=== PATIENT | male | born 1970 | race Caucasian/White ===

== ENCOUNTER 2020-06-05 20:04 | Inpatient (IN) ==
--- NOTE | 2020-06-05 20:26 | Emergency Department Note ---
Impression & Plan Precordial chest pain, Drug abuse, Hearing voices, Suicidal thoughts ED Provider Note NAME: MIKA LAM AGE: 50 SEX: M : 1970 ARRIVES VIA: Ambulance INFORMANT: [Patient][ens] ED PROVIDER(S): [John Hammer MD] CHIEF COMPLAINT: Chest pain, hearing voices HISTORY OF PRESENT ILLNESS: The patient is a 50-year-old male who [facility] He was [facility] for [facility]. The patient was walking from the facility and was picked up by the ambulance for chest pain. The patient apparently has been having chest pain on and off for weeks if not months. The chest pain is moderate in severity. The pain comes and goes and at times, he feels short of breath with it. He has no known diagnosis of coronary disease. He was given 4 baby aspirin prior to arrival by the EMS crew. No nitroglycerin administered. Patient has not had cough or congestion. He has had no fever or chills. He has not had vomiting or diarrhea. He admits to drinking some alcohol today after being discharged from [facility]. Patient has a mental health history. He states that he has felt depressed lately and he is hearing voices. He states that he has had some suicidal thoughts but has no definite plan. He has been hospitalized in the past on a psychiatric floor. He does want to be admitted voluntarily to a psychiatric facility as he is not functioning well enough as an outpatient. REVIEW OF SYSTEMS: See HPI for pertinent positives and negatives. A total of ten systems were reviewed and were otherwise negative. PMHx/PSHx: See Below SOCIAL HISTORY: See Below. PHYSICAL EXAM: GENERAL: Patient is in no acute distress. HEENT: No acute trauma, normocephalic atraumatic, mucous membranes moist, no nasal congestion, no scleral icterus. NECK: No stridor, no adenopathy, no meningismus, trachea is midline. LUNGS: Clear to auscultation bilaterally, no wheeze, no rhonchi, breath sounds equal. HEART: Without murmurs gallops or rubs, regular rate and rhythm. ABDOMEN: Soft, nontender, bowel sounds positive, no hernias, no peritonitis. EXTREMITIES: No cyanosis or edema, full range of motion of all the joints w ithout pain or difficulty, no signs for acute trauma. NEUROLOGIC: Oriented x 3, no acute motor or sensory deficits, no focal weakness. SKIN: No rash, no jaundice, no diaphoresis. Psychiatric: Cooperative, voluntary, admits to hearing voices, admits to suicidal thoughts without a definite plan. DIFFERENTIAL DIAGNOSIS: Cardiac ischemia, aortic dissection, pulmonary embolism, pneumothorax, pneumonia, pericarditis, myocarditis, esophageal rupture, GERD, cholecystitis, pancreatitis, musculoskeletal, psychosis, depression, suicidal ideation, drug and alcohol abuse, as well as other pathologies. EMERGENCY DEPARTMENT COURSE/PROCEDURES: ECG: Indication was chest pain. The ECG shows a normal sinus rhythm with a rate of 93. There is no ST elevation, no PVCs. There is some artifact present. The QTc is 425. Continuous Cardiac Monitoring: An order was placed for continuous cardiac monitoring. The monitor shows a rate of 97 with normal sinus rhythm. MEDICAL DECISION MAKING: There is no leukocytosis or concerning anemia. There is a normal platelet count. No coagulopathy. Potassium slightly low at 3.1. No kidney failure. There were some elevations to the AST and ALT--the patient states he has been told this before. The bilirubin and alk phos were normal. Lipase was normal. The patient appeared to be in a euthyroid state. ECG showed a sinus rhythm, no acute ischemia. Cardiac enzyme testing x1 is not consistent with acute cardiac injury. Chest film did not show mediastinal widening, pneumonia or pneumothorax. Urine tox was negative. Alcohol, Tylenol and aspirin levels were undetectable. Urinalysis did not show evidence for infection. The patient was given oral potassium for the slightly low potassium value. He was given a 500 cc saline bolus. Patient has been cooperative. I do believe he is medically clear for a psychiatric evaluation. His chest pain is very likely musculoskeletal and/or related to his anxiety. The patient was reassured by his work-up. Patient is going to be evaluated by our psychiatry case management team. At this point, his disposition is pending. Patient's case was signed out to Dr. Camacho at the change of shift. Past Med/Surg History Medical History Depression Drug abuse Social History Smoking Status: Current every day smoker Preferred Language: Albanian Feels Safe at Home: Yes Allergies Allergies Allergy/AdvReac Type Severity Reaction Status Date / Time nitroglycerin Allergy Unknown Verified 06/05/20 20:32 Home Meds Home Medications Medication Instructions Recorded Confirmed acetaminophen [Tylenol Extra 1,000 mg PO Q6H PRN 06/05/20 06/05/20 Strength] hydroxyzine pamoate [Vistaril] 0 mg PO BID PRN 06/05/20 06/05/20 Results & Data (ED) Vital Signs Vital Signs - 24 hr 06/05/20 20:12 06/05/20 20:24 06/05/20 21:16 Temperature 36.8 C Temperature Source Oral Pulse Rate 97 H Pulse Rate [Right] 81 Pulse Rhythm Regular Pulse Rhythm [Right] Regular Pulse Strength Normal Pulse Strength [Right] Normal Respiratory Rate 17 16 Respiratory Effort / Characteristics Non-Labored Spontaneous Non-Labored Spontaneous Respiratory Depth Normal Normal Respiratory Pattern Regular Blood Pressure 94/66 L Blood Pressure [Right Arm] 94/66 L Blood Pressure Mean 75 Blood Pressure Mean [Right Arm] 75 Blood Pressure Position Sitting Blood Pressure Position [Right Arm] Lying Pulse Oximetry 97 99 98 Oxygen Delivery Method Room Air Room Air Room Air Sepsis Recent Fever Within 48 Hours No Sepsis New/Unexplained Change in Mental Status No Sepsis Action Taken by Nursing No Action Required Home Medications Current Medication List: was personally reviewed by me Laboratory Data Attestation: I reviewed the patient's lab results. Result diagrams: 06/05/20 20:10 06/05/20 20:10 Lab Results 06/05/20 06/05/20 06/05/20 Range/Units 20:10 20:10 20:10 WBC 8.11 (4.8-10.8) K/uL RBC 4.55 L (4.7-6.1) M/uL Hgb 13.4 L (14.0-18.0) g/dL Hct 38.8 L (42-52) % MCV 85.3 (80-100) fL MCH 29.5 (25-34) pg MCHC 34.5 (32-36) g/dL RDW Std Deviation 42.7 (36.4-46.3) fL RDW Coeff of Johnnie 13.7 (11.5-14.5) % Plt Count 272 (130-400) K/uL MPV 10.3 (7.4-10.4) fL Immature Gran % (Auto) 0.1 % Neut % (Auto) 64.6 % Lymph % (Auto) 27.1 % [place] % (Auto) 6.4 % Eos % (Auto) 1.4 % Baso % (Auto) 0.4 % Neut # (Auto) 5.24 (1.4-6.5) K/uL Lymph # (Auto) 2.20 (1.2-3.4) K/uL [place] # (Auto) 0.52 (0.11-0.59) K/uL Eos # (Auto) 0.11 (0-0.5) K/uL Baso # (Auto) 0.03 (0-0.2) K/uL Immature Gran # (Auto) 0.01 (0.00-0.02) K/uL PT 11.1 (9.0-12.0) Seconds INR 1.1 (0.9-1.1) APTT 29.5 (21.0-31.0) Seconds PTT Ratio 1.1 Sodium 139 (136-145) mmol/L Potassium 3.1 L (3.5-5.1) mmol/L Chloride 104 (98-107) mmol/L Carbon Dioxide 25 (21-32) mmol/L Anion Gap 10.0 (3-11) BUN 6 L (7-18) mg/dl Creatinine 0.97 (0.6-1.4) mg/dl Est Cr Clr Drug Dosing 96.2 ml/min Est GFR ( Amer) 106.6 Est GFR (Non-Af Amer) 91.9 BUN/Creatinine Ratio 5.7 L (10-20) Glucose 126 H (70-99) mg/dl Calcium 8.4 L (8.5-10.1) mg/dl Total Bilirubin 0.4 (0.2-1) mg/dl AST 164 H (15-37) U/L ALT 368 H (12-78) U/L Alkaline Phosphatase 59 (45-117) U/L Troponin I < 0.015 (0-0.045) ng/ml Total Protein 6.9 (6.4-8.2) gm/dl Albumin 3.3 L (3.4-5.0) gm/dl Globulin 3.6 (2.5-4.0) gm/dl Albumin/Globulin Ratio 0.9 (0.9-2) Lipase 179 (73-393) U/L TSH 1.260 (0.300-4.500) uIu/ml Urine Color Urine Appearance (Clear) Urine pH (4.5-7.5) Ur Specific [place] (1.000-1.030) Urine Protein (Negative) Urine Glucose (UA) (Negative) Urine Ketones (Negative) Urine Blood (Negative) Urine Nitrite (Negative) Urine Bilirubin (Negative) Urine Urobilinogen (Negative) Ur Leukocyte Esterase (Negative) Salicylates (2.8-20) mg/dl Urine Opiates Screen (Neg) Ur Methadone, Qual (Neg) Acetaminophen (10-30) ug/ml Urine Barbiturates (Neg) Ur Phencyclidine (PCP) (Neg) U Amphetamin/Meth Scrn (Neg) MDMA (Ecstasy) Screen (Neg) U Benzodiazepines Scrn (Neg) Ur Cocaine Metabolite (Neg) U Marijuana (THC) Screen (Neg) Ethyl Alcohol mg/dL (0-3) mg/dl 06/05/20 06/05/20 06/05/20 Range/Units 20:10 20:10 20:10 WBC (4.8-10.8) K/uL RBC (4.7-6.1) M/uL Hgb (14.0-18.0) g/dL Hct (42-52) % MCV (80-100) fL MCH (25-34) pg MCHC (32-36) g/dL RDW Std Deviation (36.4-46.3) fL RDW Coeff of Johnnie (11.5-14.5) % Plt Count (130-400) K/uL MPV (7.4-10.4) fL Immature Gran % (Auto) % Neut % (Auto) % Lymph % (Auto) % [place] % (Auto) % Eos % (Auto) % Baso % (Auto) % Neut # (Auto) (1.4-6.5) K/uL Lymph # (Auto) (1.2-3.4) K/uL [place] # (Auto) (0.11-0.59) K/uL Eos # (Auto) (0-0.5) K/uL Baso # (Auto) (0-0.2) K/uL Immature Gran # (Auto) (0.00-0.02) K/uL PT (9.0-12.0) Seconds INR (0.9-1.1) APTT (21.0-31.0) Seconds PTT Ratio Sodium (136-145) mmol/L Potassium (3.5-5.1) mmol/L Chloride (98-107) mmol/L Carbon Dioxide (21-32) mmol/L Anion Gap (3-11) BUN (7-18) mg/dl Creatinine (0.6-1.4) mg/dl Est Cr Clr Drug Dosing ml/min Est GFR ( Amer) Est GFR (Non-Af Amer) BUN/Creatinine Ratio (10-20) Glucose (70-99) mg/dl Calcium (8.5-10.1) mg/dl Total Bilirubin (0.2-1) mg/dl AST (15-37) U/L ALT (12-78) U/L Alkaline Phosphatase (45-117) U/L Troponin I (0-0.045) ng/ml Total Protein (6.4-8.2) gm/dl Albumin (3.4-5.0) gm/dl Globulin (2.5-4.0) gm/dl Albumin/Globulin Ratio (0.9-2) Lipase (73-393) U/L TSH (0.300-4.500) uIu/ml Urine Color Yellow Urine Appearance Clear (Clear) Urine pH 6.5 (4.5-7.5) Ur Specific [place] 1.009 (1.000-1.030) Urine Protein Negative (Negative) Urine Glucose (UA) Negative (Negative) Urine Ketones Negative (Negative) Urine Blood Negative (Negative) Urine Nitrite Negative (Negative) Urine Bilirubin Negative (Negative) Urine Urobilinogen Negative (Negative) Ur Leukocyte Esterase Negative (Negative) Salicylates 2.1 L (2.8-20) mg/dl Urine Opiates Screen Neg (Neg) Ur Methadone, Qual Neg (Neg) Acetaminophen < 2 L (10-30) ug/ml Urine Barbiturates Neg (Neg) Ur Phencyclidine (PCP) Neg (Neg) U Amphetamin/Meth Scrn Neg (Neg) MDMA (Ecstasy) Screen Neg (Neg) U Benzodiazepines Scrn Neg (Neg) Ur Cocaine Metabolite Neg (Neg) U Marijuana (THC) Screen Neg (Neg) Ethyl Alcohol mg/dL (0-3) mg/dl 06/05/20 Range/Units 20:51 WBC (4.8-10.8) K/uL RBC (4.7-6.1) M/uL Hgb (14.0-18.0) g/dL Hct (42-52) % MCV (80-100) fL MCH (25-34) pg MCHC (32-36) g/dL RDW Std Deviation (36.4-46.3) fL RDW Coeff of Johnnie (11.5-14.5) % Plt Count (130-400) K/uL MPV (7.4-10.4) fL Immature Gran % (Auto) % Neut % (Auto) % Lymph % (Auto) % [place] % (Auto) % Eos % (Auto) % Baso % (Auto) % Neut # (Auto) (1.4-6.5) K/uL Lymph # (Auto) (1.2-3.4) K/uL [place] # (Auto) (0.11-0.59) K/uL Eos # (Auto) (0-0.5) K/uL Baso # (Auto) (0-0.2) K/uL Immature Gran # (Auto) (0.00-0.02) K/uL PT (9.0-12.0) Seconds INR (0.9-1.1) APTT (21.0-31.0) Seconds PTT Ratio Sodium (136-145) mmol/L Potassium (3.5-5.1) mmol/L Chloride (98-107) mmol/L Carbon Dioxide (21-32) mmol/L Anion Gap (3-11) BUN (7-18) mg/dl Creatinine (0.6-1.4) mg/dl Est Cr Clr Drug Dosing ml/min Est GFR ( Amer) Est GFR (Non-Af Amer) BUN/Creatinine Ratio (10-20) Glucose (70-99) mg/dl Calcium (8.5-10.1) mg/dl Total Bilirubin (0.2-1) mg/dl AST (15-37) U/L ALT (12-78) U/L Alkaline Phosphatase (45-117) U/L Troponin I (0-0.045) ng/ml Total Protein (6.4-8.2) gm/dl Albumin (3.4-5.0) gm/dl Globulin (2.5-4.0) gm/dl Albumin/Globulin Ratio (0.9-2) Lipase (73-393) U/L TSH (0.300-4.500) uIu/ml Urine Color Urine Appearance (Clear) Urine pH (4.5-7.5) Ur Specific [place] (1.000-1.030) Urine Protein (Negative) Urine Glucose (UA) (Negative) Urine Ketones (Negative) Urine Blood (Negative) Urine Nitrite (Negative) Urine Bilirubin (Negative) Urine Urobilinogen (Negative) Ur Leukocyte Esterase (Negative) Salicylates (2.8-20) mg/dl Urine Opiates Screen (Neg) Ur Methadone, Qual (Neg) Acetaminophen (10-30) ug/ml Urine Barbiturates (Neg) Ur Phencyclidine (PCP) (Neg) U Amphetamin/Meth Scrn (Neg) MDMA (Ecstasy) Screen (Neg) U Benzodiazepines Scrn (Neg) Ur Cocaine Metabolite (Neg) U Marijuana (THC) Screen (Neg) Ethyl Alcohol mg/dL < 3.0 (0-3) mg/dl Administered Medications Discontinued Medications Sodium Chloride (Nss) 500 mls @ 999 mls/hr IV .Q31M ADAM Stop: 06/05/20 21:00 Last Infusion: 06/05/20 21:08 Dose: 0 mls/hr Documented by: [id number] Admin: 06/05/20 20:25 Dose: 999 mls/hr Documented by: [id number] Potassium Chloride (Potassium Chloride Crtab 20 Meq Tabcr) 40 meq PO NOW STA Stop: 06/05/20 20:56 Last Admin: 06/05/20 21:38 Dose: 40 meq Documented by: [id number] Imaging Data Attestation: I personally reviewed and interpreted this imaging study as follows: My Impression: Chest x-ray: There was no mediastinal widening, pneumonia or pneumothorax. The lungs appeared clear. Discharge Plan Visit Data Chief Complaint: Chest Pain Stated Complaint: CHEST PAIN ED Provider: John Hammer Discharge Problem: Precordial chest pain, Drug abuse, Hearing voices, Suicidal thoughts Patient Disposition: Still a Patient Condition: Good Forms Stand Alone Forms: My [facility] Prescriptions Prescriptions: No Action acetaminophen [Tylenol Extra Strength] 500 mg Tablet 1,000 mg PO Q6H PRN (Reason: Pain) RF: 0 hydroxyzine pamoate [Vistaril] 25 mg Capsule 0 mg PO BID PRN (Reason: ..) RF: 0 Referrals Referrals: PCP,NO [Primary Care Provider] -
[2020-06-05] MEDS ORDERED: SODIUM CHLORIDE 0.9% 500 ML IV SCH (20:30)
[2020-06-05 20:41] LABS: Basophils # (auto) 0.03 K/uL (0-0.2); Basophils % (auto) 0.4 %; Eosinophils # (auto) 0.11 K/uL (0-0.5); Eosinophils % (auto) 1.4 %; Hematocrit (blood only) 38.8 % (42-52); Hemoglobin 13.4 g/dL (14.0-18.0); Immature Granulocytes # (auto) 0.01 K/uL (0.00-0.02); Immature Granulocytes % (auto) 0.1 %; Lymphocytes % (auto) 27.1 %; Mean Corpuscular Hemoglobin 29.5 pg (25-34); Mean Corpuscular Hgb Conc 34.5 g/dL (32-36); Mean Corpuscular Volume 85.3 fL (80-100); Mean Platelet Volume 10.3 fL (7.4-10.4); Monocytes # (auto) 0.52 K/uL (0.11-0.59); Monocytes % (auto) 6.4 %; Neutrophils # (auto) 5.24 K/uL (1.4-6.5); Neutrophils % (auto) 64.6 %; Platelet Count 272 K/uL (130-400); RDW Coefficient of Variation 13.7 % (11.5-14.5); RDW Standard Deviation 42.7 fL (36.4-46.3); Red Blood Count 4.55 M/uL (4.7-6.1); White Blood Count 8.11 K/uL (4.8-10.8)
[2020-06-05 20:48] LABS: Alanine Aminotransferase 368 U/L (12-78); Albumin Level 3.3 gm/dl (3.4-5.0); Aspartate Aminotransferase 164 U/L (15-37); BUN Creatinine Ratio 5.7 (10-20); Blood Urea Nitrogen 6 mg/dl (7-18); Calcium 8.4 mg/dl (8.5-10.1); Carbon Dioxide 25 mmol/L (21-32); Chloride 104 mmol/L (98-107); Creatinine Clr Calc Pharmacy 96.2 ml/min; Est GFR (African American) 106.6; Est GFR (Non-African American) 91.9; Glucose 126 mg/dl (70-99); Lipase 179 U/L (73-393); Potassium 3.1 mmol/L (3.5-5.1); Sodium 139 mmol/L (136-145)
[2020-06-05 20:52] LABS: INR 1.1 (0.9-1.1); Partial Thromboplastin Ratio 1.1; Partial Thromboplastin Time 29.5 Seconds (21.0-31.0); Prothrombin Time 11.1 Seconds (9.0-12.0)
[2020-06-05] MEDS ORDERED: POTASSIUM CHLORIDE CRTAB 20 MEQ TABCR PO STA (20:55)
[2020-06-05 20:59] LABS: Albumin Globulin Ratio 0.9 (0.9-2); Alkaline Phosphatase 59 U/L (45-117); Bilirubin,Total 0.4 mg/dl (0.2-1); Globulin 3.6 gm/dl (2.5-4.0); Total Protein 6.9 gm/dl (6.4-8.2); Troponin I < 0.015 ng/ml (0-0.045)
[2020-06-05 21:19] LABS: Appearance Urine Clear (Clear); Bilirubin Urine Negative (Negative); Blood Urine Negative (Negative); Color Urine Yellow; Glucose Urine UA Negative (Negative); Ketones Urine Negative (Negative); Leukocyte Esterase Urine Negative (Negative); Nitrite Urine Negative (Negative); Protein Urine Negative (Negative); Specific Gravity Urine 1.009 (1.000-1.030); Urobilinogen Urine Negative (Negative); pH Urine 6.5 (4.5-7.5)
[2020-06-05 21:37] LABS: Acetaminophen < 2 ug/ml (10-30); Salicylate 2.1 mg/dl (2.8-20)
[2020-06-05 21:39] LABS: Amphetamines+Metham, Urine Neg (Neg); Barbiturates, Urine Neg (Neg); Benzodiazepine, Urine Neg (Neg); Cocaine, Urine Neg (Neg); MDMA (Ecstacy), Urine Neg (Neg); Methadone, Urine Neg (Neg); Opiate, Urine Neg (Neg); Phencyclidine, Urine Neg (Neg)
--- NOTE | 2020-06-05 21:56 | Emergency Department Note ---
ED Visit Note The patient was taken in signout from Dr. Hammer at the change of shift. Please see that note for details. The patient was pending psychiatric evaluation after he reported hearing voices that were "driving him crazy" and was interested in being seen by psychiatric case making machine operator for possible voluntary placement. Patient initially presented after EMS was called for a chest pain complaint and his medical work-up was unremarkable and the patient was medically cleared. Apparently was released from [facility] rehab today after completing a detox program and was apparently walking back home to [place]. Prior to being at [facility] he reported completing a psychiatric inpatient admission. Possible 3S placement in AM (med rec appreciated) vs Referral to [facility] pending. Patient signed out to Dr. Kilpatrick at change of shift. .
--- NOTE | 2020-06-06 00:42 | Emergency Department Note ---
ED Visit Note This case was signed out to me at change of shift awaiting bed placement. 0210: Recommendations have been made by psychiatry to give the patient Zyprexa-5 mg p.o. at this time. [facility] will review the case in the a.m. The case will be signed out to Dr. Trevino at change of shift awaiting bed placement. .
[2020-06-06] MEDS ORDERED: OLANZapine 5 MG TABLET PO STA (02:12)
--- NOTE | 2020-06-06 07:21 | XRay Report ---
XR chest 1V portable CLINICAL HISTORY: Atypical chest pain COMPARISON STUDY: No previous studies for comparison. FINDINGS: The cardiac and mediastinal contours are normal. There is no evidence of focal pulmonary co nsolidation. There is no evidence of failure. No pleural effusions are visualized.[ IMPRESSION: No active disease in the chest. ACT 112: Negative or not required by law. Electronically signed by: Freddie Haines M.D. 06/06/2020 7:20 AM
--- NOTE | 2020-06-06 07:43 | Emergency Department Note ---
ED Visit Note Received patient in signout. History and physical verified by me. Pt signed out to DR Patel at change of shift .
--- NOTE | 2020-06-06 12:32 | Electrocardiogram Report ---
Test Reason : Blood Pressure : / mmHG Vent. Rate : 093 BPM Atrial Rate : 093 BPM P-R Int : 160 ms QRS Dur : 084 ms QT Int : 342 ms P-R-T Axes : 075 079 079 degrees QTc Int : 425 ms Normal sinus rhythm Normal ECG No previous ECGs available Confirmed by Misbah Martinez ([id number]) on 06/06/2020 12:32:06 PM Referred By: REFERRED SELF Confirmed By:Misbah Martinez
--- NOTE | 2020-06-06 12:36 | Electrocardiogram Report ---
Test Reason : Blood Pressure : / mmHG Vent. Rate : 066 BPM Atrial Rate : 066 BPM P-R Int : 166 ms QRS Dur : 080 ms QT Int : 392 ms P-R-T Axes : 065 071 062 degrees QTc Int : 410 ms Normal sinus rhythm Normal ECG When compared with ECG of 05-JUN-2020 20:06, (unconfirmed) No significant change was found Confirmed by Misbah Martinez ([id number]) on 06/06/2020 12:36:09 PM Referred By: REFERRED SELF Confirmed By:Misbah Martinez
--- NOTE | 2020-06-06 14:04 | Emergency Department Note ---
ED Visit Note I assumed care from the previous physician Dr. Trevino. The [facility] had [facility] and was reporting to trying to walk back to [place]. Patient was having current suicidal ideation. Patient was medically cleared and is pending placement currently. Patient signed out to Dr. Camacho pending reevaluation and disposition. .
--- NOTE | 2020-06-06 18:39 | Emergency Department Note ---
ED Visit Note The patient was taken in signout from Dr. Patel at the change of shift. Initially seen by Dr. Hammer. Please see that note for details. The patient was pending psychiatric evaluation after he reported hearing voices that were "driving him crazy" and was interested in being seen by psychiatric telehealth case manager for possible voluntary placement. Patient initially presented after EMS was called for a chest pain complaint and his medical work-up was unremarkable and the patient was medically cleared. Was released from [facility] rehab after completing a detox program and was apparently walking back home to [place]. Prior to being at [facility] he reported completing a psychiatric inpatient admission. 3S medication recommendation for Zyprexa 5mg qhs. Patient signed out to Dr. Kilpatrick at change of shift. .
[2020-06-06] MEDS ORDERED: CETIRIZINE HCL 10 MG TABLET ONE ×2 (18:45→19:27)
[2020-06-06] MEDS ORDERED: OLANZapine 5 MG TABLET PO SCH (21:00)
--- NOTE | 2020-06-06 23:32 | Emergency Department Note ---
ED Visit Note This case was signed out to me again the change of shift awaiting disposition. The patient has rested throughout the night. The ED psychiatric residential case manager has made a referral to [facility]. Because of the snowstorm, they are waiting to review his case until they can ensure the ability to do discharges. The case will be signed out to Dr. Hausre at change of shift. .
--- NOTE | 2020-06-07 07:15 | Emergency Department Note ---
ED Visit Note I received this patient in signout at the change of shift from Dr. Kilpatrick. The patient was accepted by [facility] for inpatient psychiatric care on a 201. Please refer to previous documentation for further details of the history, physical and visit. .
[2020-06-07] MEDS ORDERED: MAGNESIUM HYDROXIDE SUSP 30 ML UDC PO PRN (10:10)
[2020-06-07] MEDS ORDERED: ALUMINUM/MAGNESIUM SUSP 30 ML UDC PO PRN (10:10)
[2020-06-07] MEDS ORDERED: BISMUTH SUBSALICYLATE LIQD 236 ML PO PRN (10:10)
[2020-06-07] MEDS ORDERED: SODIUM CHLORIDE 0.65% NA SOLN 45 ML (OCEAN) PRN (10:10)
--- NOTE | 2020-06-07 10:32 | History & Physical ---
Date of Service June 07, 2020 Impression / Recommendations Impression 50-year-old male from [place], [place] who has a long history of methamphetamine and opiate abuse, with relatively new onset (2-3 months) of auditory hallucinations in the context of ongoing meth abuse. 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 Although he reports depressed mood, he does not have sufficient symptoms to meet criteria for clinical depression. He reports passive suicidal thoughts in the context of homelessness, ongoing substance use, and psychotic symptoms. We will trial an antipsychotic medication to target auditory hallucinations and paranoia, while attempting to expand the database, although this is limited by his unwillingness to cooperate. (1) Suicidal thoughts: 06/07 -continue voluntary inpatient treatment, every 15 minute checks for safety, encourage group attendance and participation. -Family meeting if patient is willing/able to identify any supports. (2) Psychosis: 06/07 - Differential includes primary thought disorder, psychotic mood disorder, substance induced psychosis, and malingering. Attempt to expand the database; unfortunately, patient refuses to provide any information about family or other supports that could provide collateral information. We will request records from [facility] and [facility] in [facility]. -Continue olanzapine 5 mg at bedtime to target auditory hallucinations and paranoia, order fasting labs for baseline on an atypical for tomorrow. -Patient has no plan for where he will go when he is discharged. Encouraged him to consider his options, will likely need to be in [place] as due to his state ID plan he will not be able to access services here, and additionally he has nowhere to stay here and it is very cold and snowy out so he cannot live on the street. Recommend referral to his county mental health office for case management and assistance with discharge planning. Psychosis type: unspecified psychosis type Qualified Code(s): F29 - Unspecified psychosis not due to a substance or known physiological condition (3) Methamphetamine abuse: 06/07 -patient claims last methamphetamine use was approximately 2 weeks ago. We will get [facility] records to try to clarify this. -Recovery protocol -Patient would benefit from outpatient substance abuse treatment; explore options in his county (4) Opiate abuse, episodic: 06/07 -patient reports he was abusing Suboxone when she was getting off the street, but was detoxed at [facility]. See above regarding substance abuse treatment recommendations. 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 Chief Complaint "Oh, so- so". History of Present Illness The patient presented to the ER 06/05/2020 with chest pain, auditory hallucinations, and suicidal ideation. He had reportedly been discharged from [facility] earlier in the day, after going there for methamphetamine abuse, last used 2 weeks prior. She also reported drinking "a couple of beers" weekly. He said he left [facility] because the voices were "telling me to get the fuck out of there." He was walking, said he was homeless and intended to "walk somewhere peaceful," although elsewhere in the record it stated he was walking back to [place]. Per the EMS report, the patient said he had been at [facility] for the past 10 days, but left after he heard voices telling him to do so. He said he left around 1 PM and walked 9 miles to [place], where he called 911 due to chest pain and shortness of breath. He did not appear in any distress, and said that he had experienced these symptoms before, was homeless, and had nowhere to go. In the ER, he reported having chest pain off and on for weeks, if not months, and denied a history of coronary disease. He said he had been drinking since leaving rehab, but alcohol level was negative. He also reported feeling depressed, hearing voices, and suicidal thoughts with no plan. He said he been homeless for several months, and appeared paranoid, stating he did not want to talk about it because "too many people listening." He refused to talk about his family or provide other background information. He did sign a release for [facility] rehab records, but they have not been received. He had an EKG which was normal sinus rhythm with a rate of 93 and QTC of 425. Repeat EKG 06/06/2020 showed no change. He had continuous cardiac monitoring in the ER which was normal, chest x-ray and and troponin was negative. Admission labs notable for potassium 3.1, for which he was given oral potassium, AST 164, ALT 368. He reported auditory hallucinations that were "driving him crazy," and requested inpatient psychiatric treatment. Bed search yesterday was unsuccessful, and he was given olanzapine 5 mg at bedtime last night. This morning, he continued to report psychotic symptoms, and agreed to voluntary admission. On my assessment today, he reports a long history of substance abuse, opiates and methamphetamine, last use approximately 2 weeks ago, with numerous rehabs and no outpatient treatment. States he started hearing voices a couple of months ago, and had never had hallucinations or mental health issues prior to that. He had one episode of inp atient psychiatric treatment about 2 months ago at [facility] in [place], [place]. He does not know what he was diagnosed with or what medications he was on, but states he did not get any prescriptions at discharge, and did not follow-up with outpatient treatment, which he thinks was arranged at "family services." He states the voices are telling him to do things, for example to leave rehab, and feels distraught by them. He also reports paranoia, multiple times referencing people following him for listening in on his conversations, and refuses to answer any questions about his family because "people are listening in." At one point he spastically flung out his arm, and states that he felt like someone was standing behind him (no one else was in the room). He says he has been homeless for the past few months, and refuses to give further information about where he lived prior to that, or who his supports are. He says he came to this area to go to [facility], stating somebody gave him a ride, but will not tell me who. He says he went to rehab for meth use, and that last use was about 2 weeks ago, also states he was abusing Suboxone. He says he had no plan for what he would do after completing rehab, and still has no plan for where he will go when he is discharged, stating he will just "walk around," or "find somewhere to relax." He says he has been supporting himself with unemployment income. He reports depressed mood which he attributes to the winter season, but denies problems with sleep, appetite, concentration, or guilt. He endorses passive wishes, stating he is "sick of life," but denies plan or intent to harm himself. He denies symptoms of susana, OCD, panic, but reports restlessness and feeling on edge. He is unable to identify goals for treatment, and when asked what he will do when he is discharged, noting heavy snow and cold weather outside, he states "just wait for spring." He says he tolerated the olanzapine last night well, and is willing to continue taking it. He also asks if he can get Vistaril while here. Past Psychiatric History Previous Psych History: Patient reports one episode of psychiatric treatment, when he was hospitalized about 2 months ago and [facility]. He denies any other mental health treatment. Current Psychiatric Diagnosis: Depression/Anxiety Outpatient Services: Non , dates he was noncompliant with the outpatient treatment set up after his hospitalization in [place]. Previous Psych Admissions: Patient reports he was hospitalized for about 10 days on a psychiatric unit in [facility] in [place] Do You Have Access To A Gun?: No History of Previous Suicide Attempt: No Past Medication Trials: Unknown, patient thinks he was on medications in the hospital, but states he was not given prescriptions at discharge. Allergies Allergy/AdvReac Type Severity Reaction Status Date / Time nitroglycerin Allergy Unknown Verified 06/05/20 20:32 Home Medications Medication Instructions Recorded Confirmed Type acetaminophen [Tylenol Extra 1,000 mg PO Q6H PRN 06/05/20 06/05/20 History Strength] hydroxyzine pamoate [Vistaril] 0 mg PO BID PRN 06/05/20 06/05/20 History Family History Family History of: Refuses To Discuss Family Mental Health History Comment: Uncooperative, fuses to talk about family Alcohol History Hx of Alcohol Use Over the Past 12 Months: Yes (1x/week - few beers) Patient reports drinking "a couple of beers once in a while." He denies a history of alcohol withdrawal Smoking Use tobacco type: cigarettes Smoking Status: Current every day smoker Substance History Hx of Prescription Med Misuse Over the Past 12 Months: Yes (Patient reports he was abusing Suboxone prior to going to rehab) Hx of Over the Counter Med Misuse Over the Past 12 Months: No Hx of Inhalent Misuse Over the Past 12 Months: No Hx of Organic Substance Use Over the Past 12 Months: No Hx of Illegal Substances/Street Drug Use Over Past 12 Months: Yes (meth - last use 14 days ago) Problems as a Result of Past Substance Use: Arrested (Multiple DUIs), Life out of Control, Sustained Bodily Harm (Liver damage from drinking) and Other (Homelessness) Patient reports attending inpatient substance abuse treatment at least 4 times, but never followed up with outpatient treatment. He denies use of cocaine, prescription stimulants, LSD, mushrooms, marijuana. He reports a history of IV drug use Personal History Living Arrangements: Homeless Living Arrangements Comments: Patient is from [place], [place]. He will not state if he has friends or family there, or where he was last living, stating he cannot remember the address. Highest Grade Completed: High School Graduate Employment Status: Unemployed Legal Problems Comment: Unknown if patient has any current legal problems Hx Legal Problems: Yes (Patient reports many previous arrests (DUIs, grand larceny, sex offender)) Patient History Medical History (Updated 06/07/20 @ 12:23 by Myra Atwood MD) Depression Drug abuse Methamphetamine abuse Opiate abuse, episodic Psychosis Social History Smoking Status: Current every day smoker Preferred Language: Citizen Of [place] Feels Safe at Home: Yes Review of Systems Review of Systems: All systems reviewed & are unremarkable except as noted in HPI & below Physical Exam Psychiatric: Orientation: alert and cooperative (Partially, refusing to answer any questions about his family or supports) Not forthcoming regarding certain aspects of his history Thin, unkempt, poor dentition, unshaven facial hair Eyes darting around the room Motor Behavior: steady gait and station and + psychomotor agitation Restlessness, jiggling his legs, myoclonic jerks Speech: normal rate/rhythm/volume of speech Affect: + anxious affect Guarded, suspicious Mood: + depressed mood Thought Process: goal directed thought process Thought Content: + paranoid and + delusions Paucity of thought content, refuses to answer some questions, vague and evasive Suicidal Thoughts: + reports suicidal thoughts Homicidal Thoughts: denies homicidal thoughts Hallucinations: + auditory hallucinations; no visual hallucinations Cognition: attention grossly intact and language grossly intact Memory impairment versus unwillingness to be forthcoming Estimated Intelligence: + below average estimated intelligence Insight: + poor insight Judgement: + poor judgement Vital Signs (Past 24 Hours): Last Vital Signs Temp 36.8 C 06/05/20 20:12 Pulse 104 H 06/07/20 09:00 Resp 16 06/07/20 09:00 BP 104/72 06/07/20 09:00 Pulse Ox 96 06/07/20 09:00 Exam Statement: A physical exam was performed in the ER prior to admission to the unit by Dr. John Hammer. I accept that physical as correct/medical clearance for the inpatient physical exam. Results & Data ([facility]) Current Inpatient Medications Current Inpatient Medications: Current Inpatient Medications Acetaminophen (Acetaminophen 325 Mg Tab) 650 mg PO Q4H PRN PRN Reason: Headache or Minor Fever Stop: 07/07/20 10:09 Al Hydrox/Mg Hydrox/Simethicone (Aluminum/Magnesium Susp 30 Ml Udc) 30 ml PO Q4H PRN PRN Reason: GI Upset Stop: 07/07/20 10:09 Bismuth Subsalicylate (Bismuth Subsalicylate Liqd 236 Ml) 15 ml PO PRN PRN PRN Reason: Loose Stool Stop: 07/07/20 10:09 Hydroxyzine HCl (Hydroxyzine Hcl 25 Mg Tab) 50 mg PO HSZ PRN PRN Reason: Insomnia Stop: 07/07/20 10:09 Hydroxyzine HCl (Hydroxyzine Hcl 25 Mg Tab) 25 mg PO Q4H PRN PRN Reason: Anxiety Stop: 07/07/20 10:09 Magnesium Hydroxide (Magnesium Hydroxide Susp 30 Ml Udc) 30 ml PO DAILY PRN PRN Reason: Constipation Stop: 07/07/20 10:09 Olanzapine (Olanzapine 5 Mg Tablet) 5 mg PO HS ADAM Stop: 07/06/20 20:59 Last Admin: 06/06/20 20:35 Dose: 5 mg Documented by: Sodium Chloride (Sodium Chloride 0.65% Na Soln 45 Ml ([place])) 1 - 2 sprays NA PRN PRN PRN Reason: Nasal Dryness/Congestion Stop: 07/07/20 10:09
[2020-06-07] MEDS: hydrOXYzine HCl 25 MG TAB PO PRN ×2 (11:48→20:51)
[2020-06-07] MEDS: ACETAMINOPHEN 325 MG TAB PO PRN ×2 (13:51→17:14)
[2020-06-07] MEDS ORDERED: OLANZapine 5 MG TABLET PO SCH (22:00)
[2020-06-08 08:08] LABS: Glucose Fasting 105 mg/dl (70-99)
[2020-06-08 08:15] LABS: Chol HDL Ratio 3; Cholesterol 189 mg/dl (0-200); HDL Cholesterol 57 mg/dl; LDL Cholesterol Calculated 114 mg/dl; Triglycerides 91 mg/dl (0-150); VLDL Cholesterol 18 mg/dl
[2020-06-08] MEDS ORDERED: OLANZapine 5 MG TABLET PO PRN (10:11)
[2020-06-08] MEDS ORDERED: OLANZapine 5 MG TABLET PO STA (10:11)
--- NOTE | 2020-06-08 10:18 | Psychiatric Progress Note ---
Date of Service June 08, 2020 Impression / Recommendations Impression 50-year-old male from [place], [place] who has a long history of methamphetamine and opiate abuse, with relatively new onset (2-3 months) of auditory hallucinations in the context of ongoing meth abuse. 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 Although he reports depressed mood, he does not have sufficient symptoms to meet criteria for clinical depression. He reports passive suicidal thoughts in the context of homelessness, ongoing substance use, and psychotic symptoms. We will trial an antipsychotic medication to target auditory hallucinations and paranoia, while attempting to expand the database, although this is limited by his unwillingness to cooperate. (1) Suicidal thoughts: 2/1 -continue voluntary inpatient treatment, every 15 minute checks for safety, encourage group attendance and participation. -Family meeting if patient is willing/able to identify any supports. 2/2 - Pt reports ongoing occasional SI - Continues to report inability to contract for safety outside of the hospital setting (2) Psychosis: 2/ - Differential includes primary thought disorder, psychotic mood disorder, substance induced psychosis, and malingering. Attempt to expand the database; unfortunately, patient refuses to provide any information about family or other supports that could provide collateral information. [facility] and [facility]. -Continue olanzapine 5 mg at bedtime to target auditory hallucinations and paranoia, order fasting labs for baseline on an atypical for tomorrow. -Patient has no plan for where he will go when he is discharged. Encouraged him to consider his options, will likely need to be in [place] as due to his state [place] plan he will not be able to access services here, and additionally he has nowhere to stay here and it is very cold and snowy out so he cannot live on the street. Recommend referral to his [facility] for case management and assistance with discharge planning. 2/2 - Titrating olanzapine to 5mg BID with a prn dose of 5mg available as well. Pt reports continued auditory hallucinations but does feel olanzapine has been helpful. - Awaiting records from his two previous treatment admissions to better understand patient's history. - Fasting labs reviewed: glucose mildly elevated at 105. Fasting lipid panel WNL - Pt reports history of benefitting from venlafaxine - reviewed that primary focus at this time would be targeting the voices with olanzapine, then mood symptoms could be evaluated further. Pt verbalized understanding and agreed with treatment plan. - Continue efforts to stabilize psychotic symptoms, then consider referrals to complete substance abuse treatment. (3) Methamphetamine abuse: 06/07 -patient claims last methamphetamine use was approximately 2 weeks ago. We will get [facility] rehab records to try to clarify this. -Recovery protocol -Patient would benefit from outpatient substance abuse treatment; explore options in his county (4) Opiate abuse, episodic: 06/07 -patient reports he was abusing Suboxone when she was getting off the street, but was detoxed at [facility] rehab. See above regarding substance abuse treatment recommendations. 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 Chief Complaint "Um, not so good. I'm really restless and the voices are annoying." Review of Systems Notes Constitutional: reports restlessness, specifically in legs Cardiovascular: denied Respiratory: denied Gastrointestinal: denied Neurological: denied Psychiatric: denies symptoms other than stated above Total of at least 10 systems reviewed, pertinent positives as above and in HPI. Sleep Information Total Hours of Sleep: 8 Meal Information Percent Meal Consumed - Lunch: 100 Percent Meal Consumed - Dinner: 50 Subjective Subjective Patient was seen & assessed and interval progress reviewed with nursing and social work. Staff report the patient slept for a large portion of yesterday afternoon/evening. Staff did observe the patient to be talking to himself in his room, looking paranoid and even yelling profanities - presumed to be responding to internal stimuli. Pt placed on formal MNPR. Pt was seen today to assess progress since admission. Visit occurred after the patient presented to the nurses' station reporting restlessness and auditory hallucinations. Pt was willing to speak with this provider to discuss medication options. He does feel that his dose of olanzapine last evening was beneficial in reducing the volume of the voices and agrees to taking the medication BID. Pt states that the voices started "about 5-6 months ago", and began as "two people just arguing in my mind all the time." He states that in "the last couple months" it has evolved to "I don't even know how many voices." Pt did not directly answer the question when this provider asked what they talk about. He admits to being distracted by the voices and overwhelmed at times. We discussed recommendation that he attempt to attend group programming as tolerated, but that at the very least he keep staff informed about the status of his voices to assist him with managing these. He did accept a prn order for an additional dose of olanzapine to be offered during the day if necessary. Pt did report SI "occasionally throughout the day", but does admit he feels safe in the hospital. Pt states "I'm trying to find a reason to hope", but states he has not yet found something that offers him this feeling. Pt states "I've been depressed most of the time" and states he had done well on venlafaxine in the past for depressive symptoms. We reviewed that our first priority would be to target the voices/psychosis. Pt does admit that his mood is generally worse in the winter months - possibly a component of SAD, but also likely more stressful given his homelessness. Pt denied other needs at this time. Physical Exam Psychiatric Orientation: alert and oriented x 3 Apperance: + disheveled and appeared stated age Thin male, clothing choice is appropriate though t-shirt and sweatpants appear soiled. Pt does appear disheveled/unkempt. Eye Contact: + fair eye contact (eyes darting around room, appearing distracted) Motor Behavior: + psychomotor agitation (appearing restless, jittery) Speech: normal rate/rhythm/volume of speech (though only brief responses to questions) Affect: + anxious affect (appearing very restless, somewhat paranoid/hypervigilant ) Mood: + depressed mood ("I've been depressed most of the time") and + anxious mood Thought Process: + tangential thought process (distracted) and + perseveration (very fixated on the voices) Thought Content: + paranoid, + delusions and + hopelessness Suicidal Thoughts: + reports suicidal thoughts reports intermittent SI and hopelessness; able to contract for safety here in the hospital setting Homicidal Thoughts: denies homicidal thoughts Hallucinations: + auditory hallucinations (hearing several voices); no visual more llucinations Cognition: attention grossly intact (but does seem distracted/restless) and language grossly intact Insight: + poor insight Judgement: + poor judgement Vital Signs (Past 24 Hours) Last Vital Signs Temp 36.6 C 06/08/20 06:36 Pulse 73 06/08/20 06:38 Resp 16 06/08/20 06:36 BP 111/73 06/08/20 06:38 Pulse Ox 99 06/07/20 14:37 Results & Data ([facility]) Laboratory Results Laboratory Results - last 24 hr 06/08/20 07:42 Fasting Glucose 105 H Triglycerides 91 Cholesterol 189 LDL Cholesterol, Calc 114 VLDL Cholesterol, Calc 18 HDL Cholesterol 57 Cholesterol/HDL Ratio 3 Current Inpatient Medications Current Inpatient Medications: Current Inpatient Medications Acetaminophen (Acetaminophen 325 Mg Tab) 650 mg PO Q4H PRN PRN Reason: Headache or Minor Fever Stop: 07/07/20 10:09 Last Admin: 06/07/20 17:14 Dose: 650 mg Documented by: Al Hydrox/Mg Hydrox/Simethicone (Aluminum/Magnesium Susp 30 Ml Udc) 30 ml PO Q4H PRN PRN Reason: GI Upset Stop: 07/07/20 10:09 Bismuth Subsalicylate (Bismuth Subsalicylate Liqd 236 Ml) 15 ml PO PRN PRN PRN Reason: Loose Stool Stop: 07/07/20 10:09 Hydroxyzine HCl (Hydroxyzine Hcl 25 Mg Tab) 50 mg PO HSZ PRN PRN Reason: Insomnia Stop: 07/07/20 10:09 Last Admin: 06/07/20 20:51 Dose: 50 mg Documented by: Hydroxyzine HCl (Hydroxyzine Hcl 25 Mg Tab) 25 mg PO Q4H PRN PRN Reason: Anxiety Stop: 07/07/20 10:09 Last Admin: 06/07/20 11:48 Dose: 25 mg Documented by: Magnesium Hydroxide (Magnesium Hydroxide Susp 30 Ml Udc) 30 ml PO DAILY PRN PRN Reason: Constipation Stop: 07/07/20 10:09 Olanzapine (Olanzapine 5 Mg Tablet) 5 mg PO HS ADAM Stop: 07/07/20 21:59 Last Admin: 06/07/20 20:51 Dose: 5 mg Documented by: Olanzapine (Olanzapine 5 Mg Tablet) 5 mg PO ONE STA Stop: 06/08/20 10:12 Sodium Chloride (Sodium Chloride 0.65% Na Soln 45 Ml ([place])) 1 - 2 sprays NA PRN PRN PRN Reason: Nasal Dryness/Congestion Stop: 07/07/20 10:09 Mental Health & Subst Abuse Tx Therapist Name of Therapist: None Telephone Order Dispatcher Name of Telephone Order Dispatcher: None (1) Psychosis Psychosis type: unspecified psychosis type Qualified Code(s): F29 - Unspecified psychosis not due to a substance or known physiological condition
[2020-06-08] MEDS: ACETAMINOPHEN 325 MG TAB PO PRN ×2 (10:41→15:57)
[2020-06-08] MEDS: hydrOXYzine HCl 25 MG TAB PO PRN (17:54)
[2020-06-08] MEDS: OLANZapine 5 MG TABLET PO SCH (20:59)
--- NOTE | 2020-06-09 08:28 | Psychiatric Progress Note ---
Date of Service June 09, 2020 Impression / Recommendations Impression 50-year-old male from [place], [place] who has a long history of methamphetamine and opiate abuse, with relatively new onset (3 months) of auditory hallucinations in the context of ongoing meth abuse. 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 Records we have now obtained from rehab and a hospital in his hometown indicate that he has repeatedly sought admission to [facility], but not followed through with outpatient treatment recommendations. He also presented to the ER reporting chest pain and when his cardiac work-up was negative, then endorsed suicidal thoughts and attempt to be admitted again, but was ultimately discharged. It is still unclear how he came to be in [place], apparently he was referred by some unknown entity in [place], and initially went to [facility] for detox, then to [facility] for rehab, but they felt he needed a higher level of care and a dual diagnosis center due to his reports of hallucinations. However, before they could transfer him elsewhere, he eloped. Although he reports depressed mood, he does not endorse sufficient symptoms to meet criteria for clinical depression. He reports passive suicidal thoughts in the context of homelessness, ongoing substance use, and psychotic symptoms. He continues to report auditory hallucinations, and says olanzapine is helping. He has been very resistant to attempts to expand the database, identify family or supports, or get collateral information, and in addition with the information above, cannot rule out malingering. He is not able to provide for his own basic needs, if he were discharged at this time we would be releasing him into some freezing temperatures, significant snow, and he claims he has no place to go and no resources, so he would be at imminent risk of . We will continue to attempt to identify supports and options for a stepdown level of care, but his only option may be a intermediate in the [place] area. He will not be able to obtain outpatient services here, as he has [facility]. (1) Suicidal thoughts: 2/ -continue voluntary inpatient treatment, every 15 minute checks for safety, encourage group attendance and participation. -Family meeting if patient is willing/able to identify any supports. 2/2 - Pt reports ongoing occasional SI - Continues to report inability to contract for safety outside of the hospital setting 2/3 -Patient denying SI. He has not been forthcoming, and will need to continue to ask band the database in order to identify options for next level of care. (2) Psychosis: 2/ - Differential includes primary thought disorder, psychotic mood disorder, substance induced psychosis, and malingering. Attempt to expand the database; unfortunately, patient refuses to provide any information about family or other supports that could provide collateral information. We will request records from [facility] and [facility] in [facility]. -Continue olanzapine 5 mg at bedtime to target auditory hallucinations and paranoia, order fasting labs for baseline on an atypical for tomorrow. -Patient has no plan for where he will go when he is discharged. Encouraged him to consider his options, will likely need to be in [place] as due to his state [place] plan he will not be able to access services here, and additionally he has nowhere to stay here and it is very cold and snowy out so he cannot live on the street. Recommend referral to his formerly [facility] office for case management and assistance with discharge planning. 2/2 - Titrating olanzapine to 5mg BID with a prn dose of 5mg available as well. Pt reports continued auditory hallucinations but does feel olanzapine has been helpful. - Awaiting records from his two previous treatment admissions to better understand patient's history. - Fasting labs reviewed: glucose mildly elevated at 105. Fasting lipid panel WNL - Pt reports history of benefitting from venlafaxine - reviewed that primary focus at this time would be targeting the voices with olanzapine, then mood symptoms could be evaluated further. Pt verbalized understanding and agreed with treatment plan. - Continue efforts to stabilize psychotic symptoms, then consider referrals to complete substance abuse treatment. 2/3 -Patient continues to report delusions of persecution and auditory hallucinations, but they are improved on olanzapine. Increased to 5 mg every morning and 10 mg at bedtime, and continue as needed dose. -Information obtained from hospital in [place] and local rehab indicate a pattern of seeking inpatient treatment but refusing to follow through with outpatient care, drug-seeking behavior, and concern for misrepresentation of symptoms, and cannot rule out a component of malingering. -We have a phone number for a manager case management and will ask him to sign a release so that we can talk to this person to help assess for treatment options once he is discharged from the hospital. (3) Methamphetamine abuse: 06/07 -patient claims last methamphetamine use was approximately 2 weeks ago. We will get [facility] rehab records to try to clarify this. -Recovery protocol -Patient would benefit from outpatient substance abuse treatment; explore options in his county. 06/09 -patient did not complete the rehab program at [facility]. They had recommended a dual diagnosis treatment center, we will explore options for that while also exploring options for retirement houses and/or shelters in his area. (4) Opiate abuse, episodic: 06/07 -patient reports he was abusing Suboxone when she was getting off the street, but was detoxed at [facility] rehab. See above regarding substance abuse treatment recommendations. 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 Chief Complaint "Okay, not too bad". Review of Systems Notes 10 systems reviewed; + for achiness all over but particularly in his legs, for which acetaminophen has been helpful. Sleep Information Total Hours of Sleep: 7 Meal Information Percent Meal Consumed - Breakfast: 100 Percent Meal Consumed - Lunch: 100 Percent Meal Consumed - Dinner: 100 Subjective Subjective Patient was seen & assessed and interval progress reviewed with treatment team. Staff report he has been paranoid, restless, and appears to be responding to hallucinations (swatting the air behind him, saying he feels like someone is standing behind him). He said he was hearing multiple voices, male and female, telling him they are killing people, and for the past month has felt that 2 people are following him. He got olanzapine 5mg bid scheduled and a 5mg prn dose, and said it was helpful. He does has not interacted with his peers, but did attend some groups, although retreated to bed at times. He continues to refuse to provide historical information. On my assessment, the patient reports that the voices have improved, and he thinks olanzapine is helpful, but they are still present and are distressing. He does not recognize the voices, and says they are repeating his thoughts, "every word I think, they have a psychic readout, or a print out, they do the repeater." He says that everywhere he goes, the voices tell him to leave, saying "you gotta leave, you gotta, they hurt people, then tell me to leave." He says he left [facility]'s rehab because the voices were telling him to leave, and that he did not tell anyone he was going, but just walked away. He thinks he walked about 5 miles before he called the ambulance. He states he is feeling "achy" all over, and especially in his legs, and that acetaminophen has been helpful. He reports good appetite, says he is eating and drinking well, and denies suicidal thoughts. He does report thoughts to harm "the voices," but says there is no way for him to do that. He continues to say he has no friends, family, or other supports. Records from [facility] (rehab) received and reviewed: Admission nursing assessment 05/26/2020 (unclear referral source), and reported he had been using meth for approximately 18 years, injecting and swallowing it. Most recent use 3-5 times a week. He also endorsed drinking alcohol a few times a month. His drug screen was positive for buprenorphine. He endorsed a history of anxiety, depression, PTSD, and chronic pain. His medical history and physical was performed 05/27/2020, he was tachycardic, physical exam otherwise normal. He reported math was his drug of choice, and last use 2 days prior to presentation. He reported last use of alcohol 4 days prior to presentation. He denied current legal problems, but reported a history of criminal charges including sex offense. He was put on a Suboxone taper, which he completed 06/03/2020. He was started on venlafaxine XR 37.5 mg and quetiapine 25 mg at bedtime on 06/04/2020 after he reported that these medications were previously helpful for mood, anxiety, and psychotic symptoms. Due to concerns for auditory hallucinations and the need for psychiatric treatment, was recommended he be transferred to a dual diagnosis facility. Labs 05/31/2020: AST 205, ALT 377. 05/27/2020: AST 106, ALT 194. CBC normal. No discharge information received. Spoke with Dr. Yanez at [facility] who reported patient initially denied psychiatric history, but after arrival there he reported hallucinations, and they recommended a higher level of care/dual diagnosis. While they were trying to arrange that, he eloped. He was referred there from somewhere in [place], but she had no further information. He left A (eloped) 06/06/20 (the same day he presented here). His home address was listed as [address] [place] [address] in [place], [place], although also it reported he was homeless, and no contact center analyst or phone number were listed. Spoke with another staff at the rehab who provided information: Patient was transferred to them from [facility] (in [place], [place]), where he was detoxed. He has a manager case management, Troy, , and gave a phone number for his parents [phone]. Records from [facility] received and reviewed: Discharge summary dated 03/31/2020: Patient was admitted 03/25/2020 after he was brought in by EMS for suicidal ideation and Suboxone withdrawal. He had also been using meth IV. He was agitated in the ER and uncooperative, and initial diagnosis was psychosis NOS, rule out methamphetamine induced psychosis. He demonstrated drug-seeking behavior, requesting benzodiazepines and Suboxone even after being told those medications would not be ordered. He had been getting Suboxone illicitly. He was started on gabapentin and paliperidone, and inpatient substance abuse treatment was recommended, but he declined. His discharge diagnosis was major depressive disorder, recurrent severe with psychosis, and methamphetamine use di sorder, severe. At discharge it was recommended he follow-up with outpatient substance abuse services, but no details provided regarding if referrals were made. Psychiatric consultation for suicidal ideation dated 04/14/2020. Patient had been admitted 04/13/2020 after he presented to the ER with a headache and chest pain, had a cardiac work-up which was negative, and when he was informed, said he was suicidal with a plan to overdose on an unspecified tranquilizer. His records showed a history of depression with psychosis and methamphetamine use disorder, severe, and he stated he had had depression his entire life, and endorsed low mood, poor sleep, poor energy, crying spells, hopelessness and helplessness. He endorsed auditory hallucinations, paranoia, persecutory delusions (believing people are following him around), and that people could read his thoughts. He was anxious and had low frustration tolerance. He denied PTSD symptoms and a trauma history. He had just been discharged from [facility] on 03/31/2020, and had a history of at least 3 hospitalizations there since 02/24/2020. He was on paliperidone 3 mg at bedtime and gabapentin 400 mg twice daily. Previous medications included venlafaxine and olanzapine. He reported at least 5 arrests with incarceration, weekly alcohol use, and denied illicit drug use. He said that he was , has 1 daughter, completed high school and attended some college classes. He was unemployed and homeless. He was diagnosed with adjustment disorder related to his homelessness and history of methamphetamine abuse. He did not meet criteria for inpatient psychiatric treatment, and discharge with outpatient follow-up was recommended. Physical Exam Psychiatric Orientation: alert, oriented to person, oriented to place and cooperative Apperance: appropriately dressed and appeared stated age Adequate hygiene, limited grooming. Dressed in the same close, thin, unshaven. Seated on the edge of the bed in no acute distress. Wearing a facemask. Eye Contact: + fair eye contact Motor Behavior: + psychomotor agitation (Jiggling legs up and down throughout the assessment) Minimal Affect: + anxious affect and + constricted affect "Okay, not too bad." Thought Process: goal directed thought process and + concrete thought process Thought Content: + paranoid, + delusions and + persecution Suicidal Thoughts: denies suicidal thoughts Homicidal Thoughts: denies homicidal thoughts Hallucinations: + auditory hallucinations; no visual hallucinations Cognition: attention grossly intact and language grossly intact; + recent memory not intact (Unclear if memory impaired versus unwillingness to provide historical infor) Estimated Intelligence: + below average estimated intelligence Insight: + impaired insight Judgement: + impaired judgement Vital Signs (Past 24 Hours) Last Vital Signs Temp 36.7 C 06/09/20 06:35 Pulse 76 06/09/20 06:36 Resp 16 06/09/20 06:35 BP 107/71 06/09/20 06:36 Pulse Ox 99 06/07/20 14:37 Results & Data ([facility]) Current Inpatient Medications Current Inpatient Medications: Current Inpatient Medications Acetaminophen (Acetaminophen 325 Mg Tab) 650 mg PO Q4H PRN PRN Reason: Headache or Minor Fever Stop: 07/07/20 10:09 Last Admin: 06/08/20 15:57 Dose: 650 mg Documented by: Al Hydrox/Mg Hydrox/Simethicone (Aluminum/Magnesium Susp 30 Ml Udc) 30 ml PO Q4H PRN PRN Reason: GI Upset Stop: 07/07/20 10:09 Bismuth Subsalicylate (Bismuth Subsalicylate Liqd 236 Ml) 15 ml PO PRN PRN PRN Reason: Loose Stool Stop: 07/07/20 10:09 Hydroxyzine HCl (Hydroxyzine Hcl 25 Mg Tab) 50 mg PO HSZ PRN PRN Reason: Insomnia Stop: 07/07/20 10:09 Last Admin: 06/07/20 20:51 Dose: 50 mg Documented by: Hydroxyzine HCl (Hydroxyzine Hcl 25 Mg Tab) 25 mg PO Q4H PRN PRN Reason: Anxiety Stop: 07/07/20 10:09 Last Admin: 06/08/20 17:54 Dose: 25 mg Documented by: Magnesium Hydroxide (Magnesium Hydroxide Susp 30 Ml Udc) 30 ml PO DAILY PRN PRN Reason: Constipation Stop: 07/07/20 10:09 Olanzapine (Olanzapine 5 Mg Tablet) 5 mg PO DAILY PRN PRN Reason: hallucinations/psychosis Stop: 07/09/20 08:59 Last Admin: 06/08/20 14:53 Dose: 5 mg Documented by: Olanzapine (Olanzapine 5 Mg Tablet) 5 mg PO BID ADAM Stop: 07/08/20 20:59 Last Admin: 06/08/20 20:59 Dose: 5 mg Documented by: Sodium Chloride (Sodium Chloride 0.65% Na Soln 45 Ml ([place])) 1 - 2 sprays NA PRN PRN PRN Reason: Nasal Dryness/Congestion Stop: 07/07/20 10:09 Mental Health & Subst Abuse Tx Therapist Name of Therapist: None Pants Closer Name of Pants Closer: None (1) Psychosis Psychosis type: unspecified psychosis type Qualified Code(s): F29 - Unspecified psychosis not due to a substance or known physiological condition
[2020-06-09] MEDS: OLANZapine 5 MG TABLET PO SCH (08:43)
[2020-06-09] MEDS: ACETAMINOPHEN 325 MG TAB PO PRN (10:26)
[2020-06-09] MEDS: NICOTINE 14 MG/24 HR PATCH TD SCH (11:38)
[2020-06-09] MEDS: hydrOXYzine HCl 25 MG TAB PO PRN ×2 (12:51→21:06)
[2020-06-09] MEDS: OLANZapine 10 MG TAB PO SCH (21:06)
[2020-06-10] MEDS: OLANZapine 5 MG TABLET PO SCH (08:47)
[2020-06-10] MEDS: NICOTINE 14 MG/24 HR PATCH TD SCH (08:47)
--- NOTE | 2020-06-10 09:41 | Psychiatric Progress Note ---
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 Records we have now obtained from rehab and a hospital in his hometown indicate that he has repeatedly sought admission to [facility] mental health unit, but not followed through with outpatient treatment recommendations. He also presented to the ER reporting chest pain and when his cardiac work-up was negative, then endorsed suicidal thoughts and attempt to be admitted again, but was ultimately discharged. It is still unclear how he came to be in [place], apparently he was referred by some unknown entity in [place], and initially went to [facility] for detox, then to [facility] for rehab, but they felt he needed a higher level of care and a dual diagnosis center due to his reports of hallucinations. However, before they could transfer him elsewhere, he eloped. Although he reports depressed mood, he does not endorse sufficient symptoms to meet criteria for clinical depression. He reports passive suicidal thoughts in the context of homelessness, ongoing substance use, and psychotic symptoms. He continues to report auditory hallucinations, and says olanzapine is helping. He has been very resistant to attempts to expand the database, identify family or supports, or get collateral information, and in addition with the information above, cannot rule out malingering. He is not able to provide for his own basic needs, if he were discharged at this time we would be releasing him into some freezing temperatures, significant snow, and he claims he has no place to go and no resources, so he would be at imminent risk of . We will continue to attempt to identify supports and options for a stepdown level of care, but his only option may be a penitentiary in the [place] area. He will not be able to obtain outpatient services here, as he has [facility]. (1) Suicidal thoughts: 2/ -continue voluntary inpatient treatment, every 15 minute checks for safety, encourage group attendance and participation. -Family meeting if patient is willing/able to identify any supports. 2/2 - Pt reports ongoing occasional SI - Continues to report inability to contract for safety outside of the hospital setting 2/3 -Patient denying SI. He has not been forthcoming, and will need to continue to ask band the database in order to identify options for next level of care. 2/4 -Denying SI (2) Psychosis: 2 - Differential includes primary thought disorder, psychotic mood disorder, substance induced psychosis, and malingering. Attempt to expand the database; unfortunately, patient refuses to provide any information about family or other supports that could provide collateral information. We will request records from [facility] rehab and [facility] in [facility]. -Continue olanzapine 5 mg at bedtime to target auditory hallucinations and paranoia, order fasting labs for baseline on an atypical for tomorrow. -Patient has no plan for where he will go when he is discharged. Encouraged him to consider his options, will likely need to be in [place] as due to his state [place] plan he will not be able to access services here, and additionally he has nowhere to stay here and it is very cold and snowy out so he cannot live on the street. Recommend referral to his [facility] office for case m anagement and assistance with discharge planning. 2/2 - Titrating olanzapine to 5mg BID with a prn dose of 5mg available as well. Pt reports continued auditory hallucinations but does feel olanzapine has been helpful. - Awaiting records from his two previous treatment admissions to better understand patient's history. - Fasting labs reviewed: glucose mildly elevated at 105. Fasting lipid panel WNL - Pt reports history of benefitting from venlafaxine - reviewed that primary focus at this time would be targeting the voices with olanzapine, then mood symptoms could be evaluated further. Pt verbalized understanding and agreed with treatment plan. - Continue efforts to stabilize psychotic symptoms, then consider referrals to complete substance abuse treatment. 2/3 -Patient continues to report delusions of persecution and auditory hallucinations, but they are improved on olanzapine. Increased to 5 mg every morning and 10 mg at bedtime, and continue as needed dose. -Information obtained from hospital in [place] and local rehab indicate a pattern of seeking inpatient treatment but refusing to follow through with outpatient care, drug-seeking behavior, and concern for misrepresentation of symptoms, and cannot rule out a component of malingering. -We have a phone number for a bottle caser and will ask him to sign a release so that we can talk to this person to help assess for treatment options once he is discharged from the hospital. 2 -Continue current meds, continue to gather information and explore treatment options and shelters in [place] -Transportation will be an issue - patient has money and may need to take a bus as he says he has no one to contact for a ride at discharge (3) Methamphetamine abuse: 06/07 -patient claims last methamphetamine use was approximately 2 weeks ago. We will get [facility] rehab records to try to clarify this. -Recovery protocol -Patient would benefit from outpatient substance abuse treatment; explore options in his county. 06/09 -patient did not complete the rehab program at [facility]. They had recommended a dual diagnosis treatment center, we will explore options for that while also exploring options for intermediate houses and/or shelters in his area. (4) Opiate abuse, episodic: 06/07 -patient reports he was abusing Suboxone when she was getting off the street, but was detoxed at [facility] rehab. See above regarding substance abuse treatment recommendations. 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 Chief Complaint "Oh, okay". Review of Systems Sleep Information Total Hours of Sleep: 6.5 Sleep Comments: pt given vistaril per rn. pt on q-15 minute checks Meal Information Percent Meal Consumed - Breakfast: 100 Percent Meal Consumed - Lunch: 100 Percent Meal Consumed - Dinner: 100 Subjective Subjective Patient was seen & assessed and interval progress reviewed with nursing and social work. Staff report he is attending and participating in groups, reporting ongoing but reduced paranoia and hallucinations, and taking medications as prescribed. He is eating and sleeping well, and tending to ADLs independently. 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 [facility] in [place] was recommended, as they have an ER and behavioral health unit, and when they were contacted, they reported the patient had been repeatedly utilizing their system since December 2019. They did not feel he was appropriate for their drug and alcohol unit, as he was not stable enough, and expressed con cern that he is homeless with no support system. She recommended calling [facility] social service liaison, and said that he should have a bottle caser since he has [place] medical assistance. In group, he talked about his previous career in [employer], and said that his mood was "frustrated." He requested and received hydroxyzine 50 mg for sleep. On my assessment today, he states it took him about an hour to fall asleep, but once he fell asleep, he slept well through the night. He reports "a vibrating feeling" in the back of his neck, and "a sense of someone standing behind me." He is able to reality test this, for example by turning to look behind him, or asking other people if they see anyone there. He states he believes in ghosts, and has "heard and seeing things" that make him think ghosts exist. He is tolerating medication well, and thinks it is helping. He denies suicidal thoughts and thoughts of harming others. Reviewed his social situation and options for next steps after discharge: Patient maintains that he has no friends or family that he wants to involve, saying he "does not like to lean on family and friends," and says he has not talked to anybody since admission. He says he is supporting himself with unemployment, and asks about penitentiary options locally. When advised we do not have a penitentiary, he asks if anywhere in [place] has shelters, advised that the closest ones would be in bigger cities which are several hours away, and he would not be able to access mental health or substance abuse treatment services due to his insurance. He says he does not really like [place] as "there is just not much going on," and is thought about relocating to other cities in [place]. He says he has stated a penitentiary in [place] before, but could not recall the name of it. He says he was going back and forth between the penitentiary and various motels for months while he was homeless. Physical Exam Psychiatric Orientation: alert and cooperative Apperance: appropriately dressed (Wearing the same clothes since admission), appropriately groomed and appeared stated age Thin, bouncing legs up and down throughout the assessment. Wearing a surgical facemask. Seated in no acute distress. Eye Contact: + fair eye contact Motor Behavior: steady gait and station and + psychomotor agitation (Bouncing legs up and down) Speech: normal rate/rhythm/volume of speech Affect: + anxious affect (Mildly) "Oh, okay." Thought Process: linear/logical thought process Suicidal Thoughts: denies suicidal thoughts Homicidal Thoughts: denies homicidal thoughts Hallucinations: + auditory hallucinations; no visual hallucinations Cognition: attention grossly intact and language grossly intact; + recent memory not intact Estimated Intelligence: + below average estimated intelligence Insight: + poor insight Judgement: + poor judgement Vital Signs (Past 24 Hours) Last Vital Signs Temp 36.6 C 06/10/20 06:37 Pulse 82 06/10/20 06:37 Resp 16 06/10/20 06:37 BP 105/70 06/10/20 06:37 Pulse Ox 99 06/07/20 14:37 Results & Data ([facility]) Current Inpatient Medications Current Inpatient Medications: Current Inpatient Medications Acetaminophen (Acetaminophen 325 Mg Tab) 650 mg PO Q4H PRN PRN Reason: Headache or Minor Fever Stop: 07/07/20 10:09 Last Admin: 06/09/20 10:26 Dose: 650 mg Documented by: Al Hydrox/Mg Hydrox/Simethicone (Aluminum/Magnesium Susp 30 Ml Udc) 30 ml PO Q4H PRN PRN Reason: GI Upset Stop: 07/07/20 10:09 Bismuth Subsalicylate (Bismuth Subsalicylate Liqd 236 Ml) 15 ml PO PRN PRN PRN Reason: Loose Stool Stop: 07/07/20 10:09 Hydroxyzine HCl (Hydroxyzine Hcl 25 Mg Tab) 50 mg PO HSZ PRN PRN Reason: Insomnia Stop: 07/07/20 10:09 Last Admin: 06/09/20 21:06 Dose: 50 mg Documented by: Hydroxyzine HCl (Hydroxyzine Hcl 25 Mg Tab) 25 mg PO Q4H PRN PRN Reason: Anxiety Stop: 07/07/20 10:09 Last Admin: 06/09/20 12:51 Dose: 25 mg Documented by: Magnesium Hydroxide (Magnesium Hydroxide Susp 30 Ml Udc) 30 ml PO DAILY PRN PRN Reason: Constipation Stop: 07/07/20 10:09 Miscellaneous (Remove Nicoderm Patch) 1 ea N/A [id number] [facility] Stop: 07/10/20 08:58 Last Admin: 06/10/20 08:47 Dose: Not Given Documented by: Nicotine (Nicotine 14 Mg/24 Hr Patch) 14 mg TD QAM [facility] Stop: 07/09/20 11:29 Last Admin: 06/10/20 08:47 Dose: 14 mg Documented by: Olanzapine (Olanzapine 5 Mg Tablet) 5 mg PO DAILY PRN PRN Reason: hallucinations/psychosis Stop: 07/09/20 08:59 Last Admin: 06/08/20 14:53 Dose: 5 mg Documented by: Olanzapine (Olanzapine 5 Mg Tablet) 5 mg PO DAILY [facility] Stop: 07/10/20 08:59 Last Admin: 06/10/20 08:47 Dose: 5 mg Documented by: Olanzapine (Olanzapine 10 Mg Tab) 10 mg PO HS [facility] Stop: 07/09/20 21:59 Last Admin: 06/09/20 21:06 Dose: 10 mg Documented by: Sodium Chloride (Sodium Chloride 0.65% Na Soln 45 Ml ([place])) 1 - 2 sprays NA PRN PRN PRN Reason: Nasal Dryness/Congestion Stop: 07/07/20 10:09 Mental Health & Subst Abuse Tx Therapist Name of Therapist: None Folder Inspector Name of Folder Inspector: None (1) Psychosis Psychosis type: unspecified psychosis type Qualified Code(s): F29 - Unspecified psychosis not due to a substance or known physiological condition
[2020-06-10] MEDS: hydrOXYzine HCl 25 MG TAB PO PRN ×2 (14:46→19:29)
[2020-06-10] MEDS: ACETAMINOPHEN 325 MG TAB PO PRN ×2 (15:26→19:29)
[2020-06-10] MEDS: OLANZapine 10 MG TAB PO SCH (20:37)
[2020-06-11] MEDS: NICOTINE 14 MG/24 HR PATCH TD SCH (08:52)
[2020-06-11] MEDS: OLANZapine 5 MG TABLET PO SCH (08:52)
[2020-06-11] MEDS: ACETAMINOPHEN 325 MG TAB PO PRN ×2 (11:25→18:37)
[2020-06-11] MEDS: hydrOXYzine HCl 25 MG TAB PO PRN ×2 (14:16→18:37)
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
--- NOTE | 2020-06-11 16:08 | Discharge Summary ---
Date of Service June 11, 2020 History of Present Illness The patient presented to the ER 06/05/2020 with chest pain, auditory hallucinations, and suicidal ideation. He had reportedly been discharged [facility] earlier in the day, after going there for methamphetamine abuse, last used 2 weeks prior. She also reported drinking "a couple of beers" weekly. He said he left [facility] because the voices were "telling me to get the fuck out of there." He was walking, said he was homeless and intended to "walk somewhere peaceful," although elsewhere in the record it stated he was walking back to [place]. Per the EMS report, the patient said he had been at [facility] for the past 10 days, but left after he heard voices telling him to do so. He said he left around 1 PM and walked 9 miles to [place], where he called 911 due to chest pain and shortness of breath. He did not appear in any distress, and said that he had experienced these symptoms before, was homeless, and had nowhere to go. In the ER, he reported having chest pain off and on for weeks, if not months, and denied a history of coronary disease. He said he had been drinking since leaving rehab, but alcohol level was negative. He also reported feeling depressed, hearing voices, and suicidal thoughts with no plan. He said he been homeless for several months, and appeared paranoid, stating he did not want to talk about it because "too many people listening." He refused to talk about his family or provide other background information. He did sign a release for [facility] records, but they have not been received. He had an EKG which was normal sinus rhythm with a rate of 93 and QTC of 425. Repeat EKG 06/06/2020 showed no change. He had continuous cardiac monitoring in the ER which was normal, chest x-ray and and troponin was negative. Admission labs notable for potassium 3.1, for which he was given oral potassium, AST 164, ALT 368. He reported auditory hallucinations that were "driving him crazy," and requested inpatient psychiatric treatment. Bed search yesterday was unsuccessful, and he was given olanzapine 5 mg at bedtime last night. This morning, he continued to report psychotic symptoms, and agreed to voluntary admission. On my assessment today, he reports a long history of substance abuse, opiates and methamphetamine, last use approximately 2 weeks ago, with numerous rehabs and no outpatient treatment. States he started hearing voices a couple of months ago, and had never had hallucinations or mental health issues prior to that. He had one episode of inpatient psychiatric treatment about 2 months ago at [facility] in [place], [place]. He does not know what he was diagnosed with or what medications he was on, but states he did not get any prescriptions at discharge, and did not follow-up with outpatient treatment, which he thinks was arranged at "family services." He states the voices are telling him to do things, for example to leave rehab, and feels distraught by them. He also reports paranoia, multiple times referencing people following him for listening in on his conversations, and refuses to answer any questions about his family because "people are listening in." At one point he spastically flung out his arm, and states that he felt like someone was standing behind him (no one else was in the room). He says he has been homeless for the past few months, and refuses to give further information about where he lived prior to that, or who his supports are. He says he came to this area to go to [facility], stating somebody gave him a ride, but will not tell me who. He says he went to rehab for meth use, and that last use was about 2 weeks ago, also states he was abusing Suboxone. He says he had no plan for what he would do after completing rehab, and still has no plan for where he will go when he is discharged, stating he will just "walk around," or "find somewhere to relax." He says he has been supporting himself with unemployment income. He reports depressed mood which he attributes to the winter season, but denies problems with sleep, appetite, concentration, or guilt. He endorses passive wishes, stating he is "sick of life," but denies plan or intent to harm himself. He denies symptoms of susana, OCD, panic, but reports restlessness and feeling on edge. He is unable to identify goals for treatment, and when asked what he will do when he is discharged, noting heavy snow and cold weather outside, he states "just wait for spring." He says he tolerated the olanzapine last night well, and is willing to continue taking it. He also asks if he can get Vistaril while here. Physical Exam Psychiatric Orientation: alert, oriented x 3 and cooperative Apperance: appropriately dressed, appropriately groomed and appeared stated age Eye Contact: + fair eye contact Motor Behavior: + tremor Speech: normal rate/rhythm/volume of speech Affect: euthymic affect Somewhat irritable at times. Mood: + anxious mood Thought Process: goal directed thought process, linear/logical thought process and clear/coherent thought process Thought Content: reality based without delusions Suicidal Thoughts: denies suicidal thoughts Homicidal Thoughts: denies homicidal thoughts Hallucinations: + auditory hallucinations Patient reports auditory hallucinations in the recent past. This may or may not represent malingering. Cognition: recent memory grossly intact, remote memory grossly intact, attention grossly intact and language grossly intact Estimated Intelligence: + above average estimated intelligence Insight: + fair insight Judgement: + fair judgement Vital Signs (Past 24 Hours) Last Vital Signs Temp 36.6 C 06/11/20 06:32 Pulse 82 06/11/20 06:35 Resp 16 06/11/20 06:32 BP 93/61 L 06/11/20 06:35 Pulse Ox 99 06/07/20 14:37 Principal Diagnosis Methamphetamine induced psychosis. Psychiatric Data During the course of hospitalization the patient was offered various modalities of psychiatric treatment and education. These included individual, group, recreational, and chemotherapy. He was offered olanzapine 5 mg in the morning and 10 mg at bedtime. The patient was somewhat ambivalent about whether olanzapine helps, but eventually said definitively that he felt it was helpful in terms of his effort to regulate his mood, and he also feels that may have helped with the perceptual disturbances that he describes. Staff observe the patient behaving in a calm manner without any evidence of behaviors that would suggest that he was responding to internal stimuli or that he was in any particu lar distress. However, that tended to change fairly substantially when placed in a setting in which he knew he was formally being observed by staff, such as an individual or group settings. He repeatedly protested (too much) that he experiences auditory hallucinations. Also, the patient had precipitated the current admission by threatening suicide in the emergency department after being told that he was going to be released. On the unit, the patient demonstrated that he was clearly future oriented. For example, while still saying he was suicidal one of the first things he did was to telephone and entitlements coordinator in [facility] in order to make certain that his income would continue. Eventually, the patient stopped saying he was suicidal, but often spontaneously referenced his history of auditory hallucinations in a manner that clearly indicated to staff that he was invested in the sick role and that his primary goal was chcf. He was also somewhat medication seeking. Of note is the fact that several of his peers on the unit mentions that they believe that he was "faking." Eventually, we confronted the patient with our observations, and explained that his pattern of using institutions and emergency rooms as a way of avoiding the hardware he has ahead of him, as well as a way of avoiding homelessness is dysfunctional and not in his best long-term interests or in the service of his expressed goals: Find a job, put some money together. Get an apartment. Find a girlfriend. And maintain long-term abstinence from alcohol and other drugs. Once became clear to the patient that we could not allow him to remain in the hospital given our findings that while his report that he may periodically experience auditory hallucinations may be true, he also is ex aggerating his psychiatric symptoms as a way to stay in the "sick role" and as a way of remaining hospitalized. Within that context, the patient began to actively participate in aftercare planning, was fully cooperative, and eventually thanked staff for explained to him that we have higher expectations of him. Day of Discharge Assessment At the time of the patient's discharge assessment he was found to be appropriately dressed and groomed. He was also pleasant and cooperative. He demonstrated fairly good social skills and stopped using references to auditory hallucinations and mental illness as a social currency in the milieu. Patient speech was delivered at a normal rate and volume. His affect was generally euthymic, but at times remains somewhat anxious. The patient's mood was described as "anxious." His thought processes demonstrated tight associations and he was able to appreciate irony and humor. The patient's thought content was devoid of any delusional material. As above, he had regularly made reference to auditory hallucinations, but during the discharge assessment he referred to the hallucinations in the past tense and acknowledge that it had been his own decision to leave the rehab program, rather than a behavior that was attributable to the content of a hallucination. The patient reports that he is not having any thoughts of suicide. He is clearly future oriented and plotted out a fairly detailed plan for community reentry, with a goal of long- term success. Specifically, he reports that he plans to take a bus from [place] to [place] (the first bus [id number] [employer] to [place] leaves at 6:15 AM on 06/12/2020). He asked for and has reviewed a list of homeless shelters and is interested in determining which shelters are closest to the [place] bus station. He says that his next step will be to purchase a temporary cell phone that he can use to make contacts. 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 He has a car that is currently impounded because of tickets and being illegally parked, and he hopes to eventually acquire enough money to get the car out of the impound lot. In the meantime, he notes that he hopes to have his friend offered to give him "a lift" from the homeless chcf to a worksite. His longer term goals include saving up enough money to get his own apartment. He was counseled about asking the staff at the chcf about assistance in keeping outpatient appointments and and getting referrals for local self-help groups, such as Narcotics Anonymous, and indicated that he intends to follow through on the recommendation. The patient's judgment and insight are at least fair. One of the patient's strengths is that we assess his intelligence as being somewhat above average. He reports no homicidal thoughts and says that if he does develop actual suicidal thoughts he will asked to be evaluated in a local emergency room Advance Directives Advance Directives Information Provided: Yes Advance Directives: No Mental Health Advance Directive: No Advance Directives on File: No Living Will: No Power of Feed Crusher Operator: No Advance Directives Reason:: Declines as Mental Health Visit. Risk Factors Assessment Homeless. History of substance dependence. Other suicidal threats. Mitigating factors include the fact that today he tells us that he does not have any h istory of suicide attempts. 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.) Stable Relationships: No Supportive Family: No Good Rapport with Provider: No Absence of Any Risk Factors Above: Yes Tobacco Cessation at Discharge Tobacco Cessation Medication Prescribed at Discharge: Offered & Pt Refused (The patient said that, quite frankly, his intent was to have a cigarette at the first opportunity.) Practical counseling provided including: recognizing danger situations, developing coping skills and providing basic information about quitting Tobacco Cessation Outpatient Followup: Referral for outpatient treatment offered and refused Antipsychotic Medications Patient is receiving olanzapine 15 mg a day in divided dosages because of his history of auditory hallucinations and difficulty regulating his mood. Total Time Total Time Spent: Greater Than 30 Minutes Total Time Includes: Examination of the patient, Discharge Planning, Medication Reconciliation and Communication with other providers Discharge Data Lab Results 06/05/20 06/05/20 06/05/20 20:10 20:10 20:10 WBC 8.11 RBC 4.55 L Hgb 13.4 L Hct 38.8 L MCV 85.3 MCH 29.5 MCHC 34.5 RDW Std Deviation 42.7 RDW Coeff of Johnnie 13.7 Plt Count 272 MPV 10.3 Immature Gran % (Auto) 0.1 Neut % (Auto) 64.6 Lymph % (Auto) 27.1 Dawes % (Auto) 6.4 Eos % (Auto) 1.4 Baso % (Auto) 0.4 Neut # (Auto) 5.24 Lymph # (Auto) 2.20 Dawes # (Auto) 0.52 Eos # (Auto) 0.11 Baso # (Auto) 0.03 Immature Gran # (Auto) 0.01 PT 11.1 INR 1.1 APTT 29.5 PTT Ratio 1.1 Sodium 139 Potassium 3.1 L Chloride 104 Carbon Dioxide 25 Anion Gap 10.0 BUN 6 L Creatinine 0.97 Est Cr Clr Drug Dosing 96.2 Est GFR ( Amer) 106.6 Est GFR (Non-Af Amer) 91.9 BUN/Creatinine Ratio 5.7 L Glucose 126 H Fasting Glucose Calcium 8.4 L Total Bilirubin 0.4 AST 164 H ALT 368 H Alkaline Phosphatase 59 Troponin I < 0.015 Total Protein 6.9 Albumin 3.3 L Globulin 3.6 Albumin/Globulin Ratio 0.9 Triglycerides Cholesterol LDL Cholesterol, Calc VLDL Cholesterol, Calc HDL Cholesterol Cholesterol/HDL Ratio Lipase 179 TSH 1.260 Urine Color Urine Appearance Urine pH Ur Specific Warren Urine Protein Urine Glucose (UA) Urine Ketones Urine Blood Urine Nitrite Urine Bilirubin Urine Urobilinogen Ur Leukocyte Esterase Salicylates Urine Opiates Screen Ur Methadone, Qual Acetaminophen Urine Barbiturates Ur Phencyclidine (PCP) U Amphetamin/Meth Scrn MDMA (Ecstasy) Screen U Benzodiazepines Scrn Ur Cocaine Metabolite U Marijuana (THC) Screen Ethyl Alcohol mg/dL SARS-CoV-2 Ag (Rapid) 06/05/20 06/05/20 06/05/20 20:10 20:10 20:10 WBC RBC Hgb Hct MCV MCH MCHC RDW Std Deviation RDW Coeff of Johnnie Plt Count MPV Immature Gran % (Auto) Neut % (Auto) Lymph % (Auto) Dawes % (Auto) Eos % (Auto) Baso % (Auto) Neut # (Auto) Lymph # (Auto) Dawes # (Auto) Eos # (Auto) Baso # (Auto) Immature Gran # (Auto) PT INR APTT PTT Ratio Sodium Potassium Chloride Carbon Dioxide Anion Gap BUN Creatinine Est Cr Clr Drug Dosing Est GFR ( Amer) Est GFR (Non-Af Amer) BUN/Creatinine Ratio Glucose Fasting Glucose Calcium Total Bilirubin AST ALT Alkaline Phosphatase Troponin I Total Protein Albumin Globulin Albumin/Globulin Ratio Triglycerides Cholesterol LDL Cholesterol, Calc VLDL Cholesterol, Calc HDL Cholesterol Cholesterol/HDL Ratio Lipase TSH Urine Color Yellow Urine Appearance Clear Urine pH 6.5 Ur Specific Warren 1.009 Urine Protein Negative Urine Glucose (UA) Negative Urine Ketones Negative Urine Blood Negative Urine Nitrite Negative Urine Bilirubin Negative Urine Urobilinogen Negative Ur Leukocyte Esterase Negative Salicylates 2.1 L Urine Opiates Screen Neg Ur Methadone, Qual Neg Acetaminophen < 2 L Urine Barbiturates Neg Ur Phencyclidine (PCP) Neg U Amphetamin/Meth Scrn Neg MDMA (Ecstasy) Screen Neg U Benzodiazepines Scrn Neg Ur Cocaine Metabolite Neg U Marijuana (THC) Screen Neg Ethyl Alcohol mg/dL SARS-CoV-2 Ag (Rapid) 06/05/20 06/05/20 06/08/20 20:51 22:44 07:42 WBC RBC Hgb Hct MCV MCH MCHC RDW Std Deviation RDW Coeff of Johnnie Plt Count MPV Immature Gran % (Auto) Neut % (Auto) Lymph % (Auto) Dawes % (Auto) Eos % (Auto) Baso % (Auto) Neut # (Auto) Lymph # (Auto) Dawes # (Auto) Eos # (Auto) Baso # (Auto) Immature Gran # (Auto) PT INR APTT PTT Ratio Sodium Potassium Chloride Carbon Dioxide Anion Gap BUN Creatinine Est Cr Clr Drug Dosing Est GFR ( Amer) Est GFR (Non-Af Amer) BUN/Creatinine Ratio Glucose Fasting Glucose 105 H Calcium Total Bilirubin AST ALT Alkaline Phosphatase Troponin I Total Protein Albumin Globulin Albumin/Globulin Ratio Triglycerides 91 Cholesterol 189 LDL Cholesterol, Calc 114 VLDL Cholesterol, Calc 18 HDL Cholesterol 57 Cholesterol/HDL Ratio 3 Lipase TSH Urine Color Urine Appearance Urine pH Ur Specific Warren Urine Protein Urine Glucose (UA) Urine Ketones Urine Blood Urine Nitrite Urine Bilirubin Urine Urobilinogen Ur Leukocyte Esterase Salicylates Urine Opiates Screen Ur Methadone, Qual Acetaminophen Urine Barbiturates Ur Phencyclidine (PCP) U Amphetamin/Meth Scrn MDMA (Ecstasy) Screen U Benzodiazepines Scrn Ur Cocaine Metabolite U Marijuana (THC) Screen Ethyl Alcohol mg/dL < 3.0 SARS-CoV-2 Ag (Rapid) Negative Hospital Course (1) Suicidal thoughts: 2/ -continue voluntary inpatient treatment, every 15 minute checks for safety, encourage group attendance and participation. -Family meeting if patient is willing/able to identify any supports. 2/2 - Pt reports ongoing occasional SI - Continues to report inability to contract for safety outside of the hospital setting 2/3 -Patient denying SI. He has not been forthcoming, and will need to continue to ask band the database in order to identify options for next level of care. 2/4 -Denying SI 2/5 -The patient continues to deny suicidal ideation and is clearly future oriented. He discussed this in some detail his plans for community reentry. He expressed concern when he was advised that his [place] Medicaid insurance may not cover hospitalization in [place], and began to actively participate in aftercare planning. The patient told us that his plans include taking a bus from [place] to [place], [place]. He asked for a list of homeless shelters in [place], and said that the first thing he would do upon arriving in [place] would be to purchase a temporary cell phone, secure his belongings at a homeless chcf, and contact a friend with whom he used to work in [place] to see if he could arrange for a job. He was also hoping that the friend would offer her to drive him back and forth to work until the patient is able to afford to get his impounded car out of the empowerment lot, or purchase another vehicle. -It is noted that the patient's earlier threats of suicide seem to have been conditional, and uttered under circumstances that suggested manipulation. (2) Psychosis: 2/ - Differential includes primary thought disorder, psychotic mood disorder, substance induced psychosis, and malingering. Attempt to expand the database; unfortunately, patient refuses to provide any information about family or other supports that could provide collateral information. We will [facility] from [facility] and [facility]. -Continue olanzapine 5 mg at bedtime to target auditory hallucinations and paranoia, order fasting labs for baseline on an atypical for tomorrow. -Patient has no plan for where he will go when he is discharged. Encouraged him to consider his options, will likely need to be in [place] as due to his state [place] plan he will not be able to access services here, and additionally he has nowhere to stay here and it is very cold and snowy out so he cannot live on the street. Recommend referral to his [facility] office for case m anagement and assistance with discharge planning. 2/2 - Titrating olanzapine to 5mg BID with a prn dose of 5mg available as well. Pt reports continued auditory hallucinations but does feel olanzapine has been helpful. - Awaiting records from his two previous treatment admissions to better understand patient's history. - Fasting labs reviewed: glucose mildly elevated at 105. Fasting lipid panel WNL - Pt reports history of benefitting from venlafaxine - reviewed that primary focus at this time would be targeting the voices with olanzapine, then mood symptoms could be evaluated further. Pt verbalized understanding and agreed with treatment plan. - Continue efforts to stabilize psychotic symptoms, then consider referrals to complete substance abuse treatment. 2/3 -Patient continues to report delusions of persecution and auditory hallucinations, but they are improved on olanzapine. Increased to 5 mg every morning and 10 mg at bedtime, and continue as needed dose. -Information obtained from hospital in [place] and local rehab indicate a pattern of seeking inpatient treatment but refusing to follow through with outpatient care, drug-seeking behavior, and concern for misrepresentation of symptoms, and cannot rule out a component of malingering. -We have a phone number for a immigration case worker and will ask him to sign a release so that we can talk to this person to help assess for treatment options once he is discharged from the hospital. 06/10 -Continue current meds, continue to gather information and explore treatment options and shelters in [place] -Transportation will be an issue - patient has money and may need to take a bus as he says he has no one to contact for a ride at discharge 06/11 -No delusional material is identified in the patient's thought content. He seems to use the statement, "I hear voices!" as a rationalization for making bad choices, or as a way of getting what he wants. -The patient was advised that sometimes people who abuse methamphetamine will experience auditory hallucinations, either while using, or while withdrawing, or both. Also, sometimes the perceptual disturbances experienced by people who misused methamphetamine can be longstanding, and require sustained abstinence. The patient indicated understanding that it will be very important for him to maintain abstinence from illicit chemical substances for the long-term. -Is not entirely clear that olanzapine 5 mg in the morning and 10 mg at bedtime helps with his auditory hallucinations, but the patient indicates that he finds olanzapine to be helpful in terms of regulating his mood and he has that it may help with the hallucinations. (3) Methamphetamine abuse: 06/07 -patient claims last methamphetamine use was approximately 2 weeks ago. We will get [facility] rehab records to try to clarify this. -Recovery protocol -Patient would benefit from outpatient substance abuse treatment; explore options in his county. 06/09 -patient did not complete the rehab program at [facility]. They had recommended a dual diagnosis treatment center, we will explore options for that while also exploring options for care home houses and/or shelters in his area. 06/11 -As above, we have been educating the patient regarding the many adverse effects of the long-term abuse of methamphetamine, as well as the importance of, at this point, strictly maintaining abstinence. We have been focusing on his periodic use of "just a little" to describe his recent use of methamphetamines, and have confronted him about the fact that he absolutely needs to completely stop using methamphetamineand, in the service of the goal, he needs to stick assiduously with participation in self-help groups such as Narcotics Anonymous and chemical dependency outpatient services. The patient indicates understanding. (4) Opiate abuse, episodic: 06/07 -patient reports he was abusing Suboxone when she was getting off the street, but was detoxed at [facility]. See above regarding substance abuse treatment recommendations. Mental Health & Subst Abuse Tx Psychiatrist Name of Psychiatrist: Refer to Mental Health Resource Booklet provided if decide you want service Therapist Name of Therapist: None Material Clerk Name of Material Clerk: None Post Discharge Appointments Smoking Cessation Counseling Tobacco Cessation Medication Prescribed at Discharge: Offered & Pt Refused (The patient said that, quite frankly, his intent was to have a cigarette at the [facility].) Contact Information Discharge Phone Number: none Discharge Address: homeless, has chcf list Discharge Plan Discharge Items Patient Disposition: Home - Self-Care Reason For Visit: PSYCHOSIS UNSPECIFIED Discharge Diagnosis: Psychosis Unspecified Condition on Discharge: Good Activity: Resume your previous activity Non-emergency contact: Primary Care Provider and 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 Follow through with your scheduled aftercare appointments. If unable to keep an appointment, please call to reschedule. 2. Take your medication only as prescribed. Medication should not be changed or stopped without the approval of your doctor. In the event of worsening symptoms or concerns about side effects, contact your doctor immediately. 3. Utilize new healthy coping skills, anger management skills, and stress management skills learned during your hospitalization. Journal feelings and process them with a support person. Identify stressors or situations that may result in relapse, deterioration or inappropriate behaviors and develop a plan to deal with those issues. 4. If your coping skills are ineffective and you are in crisis, contact your outpatient providers for direction. If unable to reach your providers, please call the [facility] CRISIS LINE AT , go to the [facility] walk-in center at [address], [address], [place], or go to the closest Emergency Room. 5. Avoid alcohol and un-prescribed drugs. 6. You have been provided with the Mental Health Advance Directives Pamphlet for your review. AFTERCARE APPOINTMENTS: * Please call your insurance company prior to your scheduled appointment to confirm your aftercare providers are covered. Take your insurance information to your appointments. WHO TO CALL AND WHEN: Medical Emergencies: For questions or emergencies related to your hospital stay, please contact the Inpatient Behavioral Health Unit at [phone]. A hot box operator is on-call 27/11 for the Behavioral Health Unit for emergencies At any time you feel your situation is an emergency, you may also call Kiko albright. Pending Studies at Discharge: No Stand-Alone Forms: My [facility] [email or web address], Smoking Cessation Medications and DC Order Prescriptions: New olanzapine 5 mg Tablet 5 mg PO DAILY Qty: 30 RF: 0 olanzapine 10 mg Tablet 10 mg PO HS Qty: 30 RF: 0 Continued hydroxyzine pamoate [Vistaril] 25 mg Capsule 0 mg PO BID PRN (Reason: ..) RF: 0 Discontinued acetaminophen [Tylenol Extra Strength] 500 mg Tablet 1,000 mg PO Q6H PRN (Reason: Pain) RF: 0 Discharge Orders: Discharge Order (Routine); Ordered 06/12/20 Ordered By: Tejas Sam Admission Data Admit Date/Time: 06/07/20 10:10 Attending Provider: Myra Atwood Admit Provider: Myra Atwood Primary Care Provider: PCP,NO Other Interventions: PSY Interdisciplinary Discharge Planning Last Done: 06/11/20 15:05 Coding [place] [address] D/C day mgmt > 30 min Patient Type Established History Expanded Problem Focused Exam Expanded Problem Focused Medical Decision Making Moderate Complexity Diagnoses Suicidal thoughts R45.851 Psychosis F29 Psychosis type: unspecified psychosis type Methamphetamine abuse F15.10 Opiate abuse, episodic F11.10 Time Spent (min) 100
[2020-06-11] MEDS: OLANZapine 10 MG TAB PO SCH (21:10)
[2020-06-12] MEDS: hydrOXYzine HCl 25 MG TAB PO PRN (04:23)
[2020-06-12] MEDS: OLANZapine 5 MG TABLET PO SCH (04:31)
== END 2020-06-12 05:04 | disposition home or self-care (01) | DRG 897 ==
LOC: ED 20:04 → 3S 06-07 10:06